=== PATIENT | female | born 1995 | race American Indian/Alaskan Native ===

== ENCOUNTER 2019-05-09 09:33 | Emergency (ER) | payer SELFPAY ==
[2019-05-09 09:39] VITALS: BP 115/68
--- NOTE | 2019-05-09 10:14 | Emergency Department Report ---
Chief Complaint: Recheck/Abnormal Lab/Rx Stated Complaint: POSS TEST Time Seen by Provider: 05/09/19 10:13 - HPI History of Present Illness: Ms. Sheets is a 23-year-old female who desires care and a urine test. She recently missed her period. She had mild nausea. She denies any pain or discomfort. She denies any vaginal bleeding. I have given her several referrals. MSE performed and completed. - Exam Vital Signs: Vital Signs 05/09/19 09:38 Temperature 98.3 F Pulse Rate 89 Respiratory 16 Rate Blood Pressure 115/68 O2 Sat by Pulse 100 Oximetry MSE screening note: Focused history and physical exam performed. Due to findings the following was ordered: ED Disposition for MSE Clinical Impression: Encounter for laboratory test Disposition: MED SCREENING EXAM-LEFT Condition: Stable
== END 2019-05-09 10:16 | disposition left against medical advice (07) ==
LOC: ED 09:33
DX: Z32.00 Encounter for pregnancy test, result unknown (principal)

== ENCOUNTER 2020-05-14 15:49 | Emergency (ER) | payer BC, MEDICAID ==
--- NOTE | 2020-05-14 16:41 | Event Note ---
ED Screening Note Date of service: 05/14/20 Time: 16:40 ED Screening Note: 24-year-old -Swazi female states that she is a 4 to 5 weeks and complains of nausea and vomiting. Denies any vaginal bleeding vaginal discharge no abdominal pain.Last menstrual period was 03/08/2020. 3 para 2. This initial assessment/diagnostic orders/clinical plan/treatment(s) is/are subject to change based on patients health status, clinical progression and re- assessment by fellow clinical providers in the ED. Further treatment and workup at subsequent clinical providers discretion. Patient/guardian urged not to elope from the ED as their condition may be serious if not clinically assessed and managed. Initial orders include:
[2020-05-14 17:31] LABS: Bilirubin,Urine NEG (Negative); Blood,Urine NEG (Negative); Color,Urine Yellow (Yellow); Mucus,Urine 3+ /HPF; Urobilinogen,Urine < 2.0 mg/dL (<2.0)
[2020-05-14 18:49] LABS: Alanine Aminotransferase 22 units/L (7-56); Albumin 4.1 g/dL (3.9-5); Blood Urea Nitrogen 6 mg/dL (7-17); Calcium 9.4 mg/dL (8.4-10.2); Hemolysis Index 8
[2020-05-14 18:56] LABS: Basophils % (Auto) 0.4 % (0.0-1.8); Eosinophils % (Auto) 0.1 % (0.0-4.3); Hematocrit 31.4 % (30.3-42.9); Hemoglobin 10.5 gm/dl (10.1-14.3); Lymphocytes # (Auto) 2.1 K/mm3 (1.2-5.4); Lymphocytes % (Auto) 28.3 % (13.4-35.0); Mean Corpuscular HGB Conc 33 % (30-34); Mean Corpuscular Volume 89 fl (79-97); Monocytes # (Auto) 0.4 K/mm3 (0.0-0.8); Platelet Count 278 K/mm3 (140-440); Red Blood Count 3.54 M/mm3 (3.65-5.03); Red Cell Distribution Width 13.8 % (13.2-15.2)
[2020-05-14 19:12] LABS: BUN/Creatinine Ratio 10
[2020-05-14] MEDS ORDERED: FAMOTIDINE 20 MG/2 ML INJ IV ONE (20:11)
[2020-05-14] MEDS ORDERED: METOCLOPRAMIDE 10 MG/2 ML INJ IV ONE (20:11)
[2020-05-14] MEDS ORDERED: cefTRIAXone/NS 1 GM/50 ML 1 GM/50 ML BAG IV ONE (20:11)
[2020-05-14] MEDS ORDERED: diphenhydrAMINE 50 MG/ML VIAL IV ONE (20:11)
[2020-05-14] MEDS ORDERED: SODIUM CHLORIDE 0.9% 1000 ML 1,000 ML IV ONE (20:12)
--- NOTE | 2020-05-14 21:36 | Ultrasound Report ---
ULTRASOUND OBSTETRIC INDICATION / CLINICAL INFORMATION: Pelvic pain - . Clinical Gestational Age (GA) in weeks, days: 9, 4 TECHNIQUE: Transabdominal and Transvaginal. COMPARISON: None available. FINDINGS: GESTATIONAL SAC: Well-defined oval shape and intrauterine in location. YOLK SAC: No significant abnormality. EMBRYO/FETUS: No significant abnormality. - [place]-Rump Length = 2.5 cm = 9, 2 weeks, days - Heart Rate, beats per minute (if present) = 173 ADNEXA: Small left ovarian cyst. FREE FLUID: Trace free fluid in cul-de-sac. ADDITIONAL FINDINGS: None. IMPRESSION: 1. Single, living intrauterine with estimated sonographic age of 9, 2 weeks, days. Signer Name: Tammy Sheriff MD Signed: 05/14/2020 9:31 PM Workstation Name: [id number]
--- NOTE | 2020-05-14 21:36 | Ultrasound Report ---
ULTRASOUND OBSTETRIC INDICATION / CLINICAL INFORMATION: Pelvic pain - . Clinical Gestational Age (GA) in weeks, days: 9, 4 TECHNIQUE: Transabdominal and Transvaginal. COMPARISON: None available. FINDINGS: GESTATIONAL SAC: Well-defined oval shape and intrauterine in location. YOLK SAC: No significant abnormality. EMBRYO/FETUS: No significant abnormality. - [place]-Rump Length = 2.5 cm = 9, 2 weeks, days - Heart Rate, beats per minute (if present) = 173 ADNEXA: Small left ovarian cyst. FREE FLUID: Trace free fluid in cul-de-sac. ADDITIONAL FINDINGS: None. IMPRESSION: 1. Single, living intrauterine with estimated sonographic age of 9, 2 weeks, days. Signer Name: Tammy Sheriff MD Signed: 05/14/2020 9:31 PM Workstation Name: [id number]
--- NOTE | 2020-05-14 21:45 | Emergency Department Report ---
ED N/V/D HPI - General Chief complaint: Nausea/Vomiting/Diarrhea Stated complaint: NAUSEA/PREG 4WKS Source: patient Mode of arrival: Ambulatory Limitations: No Limitations - History of Present Illness Initial comments: Patient is a A0 24-year-old -Tristanian female with no past medical history and who is approximately 6 weeks gestation presents to the ED with complaint of acute onset persistent intractable nausea and vomiting for the last 1 week, worse in the last 2 days. Patient states that she has not been able to eat anything including food and water for the last 2 days because of worsening intractable nausea and vomiting. Patient also complains of mild epigastric pain. Patient denies dizziness, syncope, diarrhea, dysuria, urinary frequency and urgency, vaginal bleeding, vaginal discharge, low back pain, headache, fever, chills, cough, seizures or hemoptysis and hematemesis. MD complaint: nausea, vomiting -: Sudden, week(s) (1) Description of Vomiting: food contents, watery Associated Abdominal Pain: Yes (Mildly diffuse) Location: diffuse Radiation: none Severity: mild Pain Scale: 2 Quality: cramping, dull Consistency: intermittent Improves with: none Worsens with: eating, vomiting Context: other (Prenancy related) Associated Symptoms: denies other symptoms, loss of appetite, malaise, nausea/vomiting. denies: myalgias, chest pain, cough, diaphoresis, fever/chills, headaches, rash, dysuria, shortness of breath, syncope, weakness - Related Data Previous Rx's Medication Instructions Recorded Last Taken Type Acetaminophen [Tylenol] 500 mg PO Q6HR PRN #30 tablet 05/14/20 Unknown Rx Metoclopramide [Reglan] 10 mg PO Q6H PRN #60 tab 05/14/20 Unknown Rx Vit No.129/Iron/Folic 1 each PO DAILY #60 tablet 05/14/20 Unknown Rx [ One Daily Tablet] cephALEXin [Keflex] 500 mg PO Q12HR #20 cap 05/14/20 Unknown Rx Allergies Allergy/AdvReac Type Severity Reaction Status Date / Time No Known Allergies Allergy Unverified 05/09/19 09:34 ED Review of Systems ROS: Stated complaint: NAUSEA/PREG 4WKS Other details as noted in HPI Constitutional: denies: chills, fever Eyes: denies: eye pain, eye discharge, vision change ENT: denies: ear pain, throat pain Respiratory: denies: cough, shortness of breath, wheezing Cardiovascular: denies: chest pain, palpitations Endocrine: no symptoms reported Gastrointestinal: abdominal pain, nausea, vomiting. denies: diarrhea Genitourinary: denies: urgency, dysuria, frequency, hematuria, discharge, abnormal menses Musculoskeletal: denies: back pain, joint swelling, arthralgia Skin: denies: rash, lesions Neurological: denies: headache, weakness, paresthesias Psychiatric: denies: anxiety, depression Hematological/Lymphatic: denies: easy bleeding, easy bruising ED Past Medical Hx - Past Medical History Previous Medical History?: No - Surgical History Past Surgical History?: No - Social History Smoking Status: Never Smoker Substance Use Type: None - Medications Home Medications: Home Medications Medication Instructions Recorded Confirmed Last Taken Type Acetaminophen [Tylenol] 500 mg PO Q6HR PRN #30 tablet 05/14/20 Unknown Rx Metoclopramide [Reglan] 10 mg PO Q6H PRN #60 tab 05/14/20 Unknown Rx Vit No.129/Iron/Folic 1 each PO DAILY #60 tablet 05/14/20 Unknown Rx [ One Daily Tablet] cephALEXin [Keflex] 500 mg PO Q12HR #20 cap 05/14/20 Unknown Rx ED Physical Exam - General Limitations: No Limitations General appearance: alert, in no apparent distress - Head Head exam: Present: atraumatic, normocephalic, normal inspection - Eye Eye exam: Present: normal appearance, PERRL, EOMI Pupils: Present: normal accommodation - ENT ENT exam: Present: normal exam, normal orophraynx, mucous membranes moist, TM's normal bilaterally, normal external ear exam - Neck Neck exam: Present: normal inspection, full ROM - Respiratory Respiratory exam: Present: normal lung sounds bilaterally. Absent: respiratory distress, wheezes, rales, rhonchi, chest wall tenderness, accessory muscle use, decreased breath sounds, prolonged expiratory - Cardiovascular Cardiovascular Exam: Present: regular rate, normal rhythm, normal heart sounds. Absent: systolic murmur, diastolic murmur, rubs, gallop - GI/Abdominal GI/Abdominal exam: Present: soft, normal bowel sounds. Absent: distended, tenderness, guarding, rigid, hyperactive bowel sounds, hypoactive bowel sounds, organomegaly - Extremities Exam Extremities exam: Present: normal inspection, full ROM, normal capillary refill - Back Exam Back exam: Present: normal inspection, full ROM. Absent: tenderness, CVA tender ness (R), CVA tenderness (L), muscle spasm, paraspinal tenderness, vertebral tenderness - Neurological Exam Neurological exam: Present: alert, oriented X3, CN II-XII intact, normal gait, reflexes normal - Psychiatric Psychiatric exam: Present: normal affect, normal mood - Skin Skin exam: Present: warm, dry, intact, normal color. Absent: rash ED Course Vital Signs 05/14/20 16:33 Temperature 99.0 F Pulse Rate 91 H Respiratory 16 Rate Blood Pressure 131/73 [Right] O2 Sat by Pulse 99 Oximetry ED Medical Decision Making - Lab Data Result diagrams: 05/14/20 18:18 05/14/20 18:18 - Radiology Data Radiology results: report reviewed, image reviewed Findings [facility] [address] [place] [address] Ultrasound Report Signed Patient: AAORN TITUS MR#: [id number] : 1995 Acct:[id number] Age/Sex: 24 / F ADM Date: 05/14/20 Loc: ED Attending Dr: Ordering Physician: JONATHAN GARDNER Date of Service: 05/14/20 Procedure(s): US OB transvaginal Accession Number(s): [id number] cc: JONATHAN GARDNER ULTRASOUND OBSTETRIC INDICATION / CLINICAL INFORMATION: Pelvic pain - . Clinical Gestational Age (GA) in weeks, days: 9, 4 TECHNIQUE: Transabdominal and Transvaginal. COMPARISON: None available. FINDINGS: GESTATIONAL SAC: Well-defined oval shape and intrauterine in location. YOLK SAC: No significant abnormality. EMBRYO/FETUS: No significant abnormality. - [place]-Rump Length = 2.5 cm = 9, 2 weeks, days - Heart Rate, beats per minute (if present) = 173 ADNEXA: Small left ovarian cyst. FREE FLUID: Trace free fluid in cul-de-sac. ADDITIONAL FINDINGS: None. IMPRESSION: 1. Single, living intrauterine with estimated sonographic age of 9, 2 weeks, days. Signer Name: Tammy Sheriff MD Signed: 05/14/2020 9:31 PM Workstation Name: [id number] Transcribed By: DT Dictated By: Ankur Sheriff MD Electronically Authenticated By: Ankur Sheriff MD Signed Date/Time: 05/14/202130 DD/ 29 TD/TT: Findings [facility] [address] [place] [address] Ultrasound Report Signed Patient: AARON TITUS MR#: [id number] : 1995 Acct:[id number] Age/Sex: 24 / F ADM Date: 05/14/20 Loc: ED Attending Dr: Ordering Physician: JONATHAN GARDNER Date of Service: 05/14/20 Procedure(s): US OB <= 14 weeks fetus Accession Number(s): [id number] cc: JONATHAN GARDNER ULTRASOUND OBSTETRIC INDICATION / CLINICAL INFORMATION: Pelvic pain - . Clinical Gestational Age (GA) in weeks, days: 9, 4 TECHNIQUE: Transabdominal and Transvaginal. COMPARISON: None available. FINDINGS: GESTATIONAL SAC: Well-defined oval shape and intrauterine in location. YOLK SAC: No significant abnormality. EMBRYO/FETUS: No significant abnormality. - [place]-Rump Length = 2.5 cm = 9, 2 weeks, days - Heart Rate, beats per minute (if present) = 173 ADNEXA: Small left ovarian cyst. FREE FLUID: Trace free fluid in cul-de-sac. ADDITIONAL FINDINGS: None. IMPRESSION: 1. Single, living intrauterine with estimated sonographic age of 9, 2 weeks, days. Signer Name: Tammy Sheriff MD Signed: 05/14/2020 9:31 PM Workstation Name: [id number] Transcribed By: DT Dictated By: Ankur Sheriff MD Electronically Authenticated By: Ankur Sheriff MD Signed Date/Time: 05/14/202130 DD/ 29 TD/TT: - Medical Decision Making This is a A0 24-year-old -T[place] female with no past medical history and who is approximately 6 weeks gestation presents to the ED with complaint of acute onset persistent intractable nausea and vomiting for the last 1 week, worse in the last 2 days. Patient states that she has not been able to eat anything including food and water for the last 2 days because of worsening intractable nausea and vomiting. Patient also complains of mild epigastric pain. In the ED, patient is alert and oriented x3 and is not in distress. Patient vital signs are stable. Lab test results were reviewed and showed hCG quant of [id number] and significant urinary tract infection in urinalysis. The rest of the lab test results were nonactionable. Patient was treated in the ED with antiemetics, also given normal saline 1 L IV bolus, antacids and Rocephin 1 g IV x1. On reevaluation, patient felt better, nausea and vomiting resolved and patient was oral fluid challenge in the ED. Patient was discharged home on medications and advised to maintain a clear liquid diet for 12 to 24 h, and follow-up with [facility] physician in 3 to 5 days for reevaluation or return to the ED immediately if symptoms get worse. - Differential Diagnosis Hyperemesis gravidarum; Dehydration; UTI; Ovarian cyst; Critical care attestation.: If time is entered above; I have spent that time in minutes in the direct care of this critically ill patient, excluding procedure time. ED Disposition Clinical Impression: Hyperemesis gravidarum, Acute urinary tract infection Disposition: DC-01 TO HOME OR SELFCARE Is pt being admited?: No Does the pt Need Aspirin: No Condition: Stable Instructions: Morning Sickness, [id number], Hyperemesis Gravidarum, Urinary Tract Infection, Adult, [id number] Additional Instructions: The transvaginal ultrasound shows a single, living intrauterine with estimated sonographic age of 9 weeks, 2 days with a heart rate of 173 bpm. The lab test results are unremarkable except for acute urinary tract infection in urinalysis. Therefore maintain a clear liquid diet for 12 to 24 hours, take medications and drink plenty of fluids. Follow-up with your [facility] physician in 3 to 5 days for reevaluation or return to the ED immediately if symptoms get worse. Prescriptions: Acetaminophen [Tylenol] 500 mg PO Q6HR PRN #30 tablet PRN Reason: Pain , Severe (7-10) cephALEXin [Keflex] 500 mg PO Q12HR #20 cap Vit No.129/Iron/Folic [ One Daily Tablet] 1 each PO DAILY #60 tablet Metoclopramide [Reglan] 10 mg PO Q6H PRN #60 tab PRN Reason: Nausea And Vomiting Referrals: ZI TOLEDO MD [Staff Physician] - 3-5 Days Time of Disposition: 21:44 Print Language: ERITREAN
[2020-05-14 23:42] VITALS: BP 127/84
== END 2020-05-14 22:52 | disposition home or self-care (01) ==
LOC: ED 15:49
DX: O21.0 Mild hyperemesis gravidarum (principal); O23.41 Unspecified infection of urinary tract in pregnancy, first trimester; O21.8 Other vomiting complicating pregnancy; Z79.899 Other long term (current) drug therapy; Z3A.01 Less than 8 weeks gestation of pregnancy
CPT/HCPCS: 36415; 76801; 76817; 80053; 81001; 84702; 85025; 87086; 96361; 96365; 96375; 99284; J0696; J1200; J2765; J7030